=== PATIENT | female | born 1955 | race Caucasian/White ===

== ENCOUNTER 2016-07-07 22:31 | Inpatient (IN) | payer OTHER, MEDICAID ==
--- NOTE | 2016-07-07 22:54 | EDPHY ---
H & P Stated Complaint: muscle rigidity HPI/ROS: HPI The patient presents with muscle rigidity in her lower extremities which has been present for the last several hours. The patient underwent outpatient operation for rectal prolapse today at approximately 11:00 a.m. at the [facility] outpatient surgery center. She reports she had light sedation, was not intubated, believes she had some sort of block performed. She was able to walk after the operation, however she had slow onset of rigidity in both of her lower extremities to the point that she was unable to walk. This is severe and has been constant. This was associated with a sensation of urinary retention. She is on baclofen total of 40 mg a day, however was only able to take 20 mg today and she feels this is causing some spasticity. She does not have any new numbness of her legs. She is brought in by ambulance and was given Valium 10 mg IV with some improvement of her symptoms. She recently restarted a MS medication because of ongoing symptoms of leg numbness and weakness. REVIEW OF SYSTEMS Constitutional: No fever, no chills. Eyes: No discharge. ENT: No sore throat. Cardiovascular: No chest pain, no palpitations. Respiratory: No cough, no shortness of breath. Gastrointestinal: No abdominal pain, no vomiting. Genitourinary: No hematuria. Musculoskeletal: No back pain. Skin: No rashes. Neurological: No headache. PMHx: Multiple sclerosis on Gilenya, restarted 2 wks ago, walks with a cane Soc Hx: Lives with a roommate in [place] PHYSICAL General Appearance: Alert, no distress Eyes: Pupils equal and round no pallor or injection ENT, Mouth: Mucous membranes moist Respiratory: There are no retractions, lungs are clear to auscultation Cardiovascular: Regular rate and rhythm Gastrointestinal: Abdomen is soft and non-tender, no masses, bowel sounds normal Neurological: A&O, increased tone in both of her lower extremities hips and knees extended and feet in plantar flexion no clonus is elicited, 2+ patellar reflexes bilaterally, mildly decreased sensation to light touch in both legs Skin: Warm and dry, no rashes Musculoskeletal: Neck is supple non tender Extremities: symmetrical, no rash Psychiatric: Patient is oriented X 3, there is no agitation Source: Patient, EMS Exam Limitations: No limitations - Personal History Current Tetanus/Diphtheria Vaccine: Yes Current Tetanus Diphtheria and Acellular Pertussis (TDAP): Yes - Medical/Surgical History Hx Asthma: No Hx Chronic Respiratory Disease: No Hx Diabetes: No Hx Cardiac Disease: No Hx Renal Disease: No Hx Cirrhosis: No Hx Alcoholism: No Hx HIV/AIDS: No Hx Splenectomy or Spleen Trauma: No Other PMH: MS, prolapsed rectum - Social History Smoking Status: Current every day smoker Constitutional: Initial Vital Signs Temperature (C) 37.1 C 07/07/16 22:45 Heart Rate 76 07/07/16 22:45 Respiratory Rate 20 07/07/16 22:45 Blood Pressure 119/76 07/07/16 22:45 O2 Sat (%) 95 07/07/16 22:45 O2 Delivery Mode Room Air Allergies/Adverse Reactions: morphine Allergy (Verified 07/07/16 22:43) Home Medications: Medication Instructions Recorded Baclofen 07/07/16 Gilenya 07/07/16 Miralax 17 gm (*) 07/07/16 Oxybutynin 07/07/16 Paroxetine HCl 07/07/16 VITAMIN D 07/07/16 traMADol 07/07/16 Medical Decision Making Differential Diagnosis: This is a 60-year-old female with history of multiple sclerosis who presents brought in by ambulance for lower extremity rigidity bilaterally and urinary retention, after having outpatient surgery to repair a rectal prolapse earlier today. Differential diagnosis includes anesthesia side-effect, multiple sclerosis flare , UTI. In the emergency room, Ward catheter was placed with return of 1200 mL of clear urine. This improved her symptoms significantly, however rigidity persisted. She was given a dose of baclofen as well as an additional dose of Valium. She was monitored for several hours. With medication, her rigidity of her lower extremities improved, however she was still unable to ambulate. Basic labs were checked and were all unremarkable including a UA. I feel that her symptoms could be related to baclofen withdrawal. I have discussed the case with the hospitalist Dr. Bhavesh Navarro and we plan to admit the patient. - Data Points Laboratory Results: Laboratory Results 07/07/16 23:20 07/07/16 23:20 07/07/16 07/07/16 07/07/16 23:20 23:20 23:00 WBC 14.33 10^3/uL H 10^3/uL (3.80-9.50) RBC 3.83 10^6/uL L 10^6/uL (4.18-5.33) Hgb 12.2 g/dL L g/dL (12.6-16.3) Hct 36.0 % L % (38.0-47.0) MCV 94.0 fL fL (81.5-99.8) MCH 31.9 pg pg (27.9-34.1) MCHC 33.9 g/dL g/dL (32.4-36.7) RDW 13.0 % % (11.5-15.2) Plt Count 169 10^3/uL 10^3/uL (150-400) MPV 11.3 fL fL (8.7-11.7) Neut % (Auto) 88.5 % H % (39.3-74.2) Lymph % (Auto) 5.7 % L % (15.0-45.0) Wilkinson % (Auto) 5.3 % % (4.5-13.0) Eos % (Auto) 0.1 % L % (0.6-7.6) Baso % (Auto) 0.1 % L % (0.3-1.7) Nucleat RBC Rel Count 0.0 % % (0.0-0.2) Absolute Neuts (auto) 12.68 10^3/uL H 10^3/uL (1.70-6.50) Absolute Lymphs (auto) 0.81 10^3/uL L 10^3/uL (1.00-3.00) Absolute Monos (auto) 0.76 10^3/uL 10^3/uL (0.30-0.80) Absolute Eos (auto) 0.01 10^3/uL L 10^3/uL (0.03-0.40) Absolute Basos (auto) 0.02 10^3/uL 10^3/uL (0.02-0.10) Absolute Nucleated RBC 0.00 10^3/uL 10^3/uL (0-0.01) Immature Gran % 0.3 % % (0.0-1.1) Immature Gran # 0.05 10^3/uL 10^3/uL (0.00-0.10) Sodium 138 mEq/L mEq/L (134-144) Potassium 4.1 mEq/L mEq/L (3.5-5.2) Chloride 108 mEq/L mEq/L (97-110) Carbon Dioxide 23 mEq/l mEq/l (22-31) Anion Gap 7 mEq/L L mEq/L (8-16) BUN 10 mg/dL mg/dL (7-23) Creatinine 0.7 mg/dL mg/dL (0.6-1.0) Estimated GFR > 60 Glucose 101 mg/dL H mg/dL (70-100) Calcium 8.9 mg/dL mg/dL (8.5-10.4) Total Bilirubin 0.7 mg/dL mg/dL (0.1-1.4) AST 15 IU/L IU/L (14-46) ALT 31 IU/L IU/L (9-52) Alkaline Phosphatase 79 IU/L IU/L (38-126) Creatine Kinase 66 IU/L IU/L (0-156) Total Protein 6.2 g/dL L g/dL (6.3-8.2) Albumin 3.7 g/dL g/dL (3.5-5.0) Urine Color YELLOW Urine Appearance CLEAR Urine pH 7.0 (5.0-7.5) Ur Specific [place] 1.010 (1.002-1.030) Urine Protein NEGATIVE (NEGATIVE) Urine Ketones TRACE H (NEGATIVE) Urine Blood NEGATIVE (NEGATIVE) Urine Nitrate NEGATIVE (NEGATIVE) Urine Bilirubin NEGATIVE (NEGATIVE) Urine Urobilinogen NEGATIVE EU EU (0.2-1.0) Ur Leukocyte Esterase NEGATIVE (NEGATIVE) Urine Glucose NEGATIVE (NEGATIVE) Medications Given: Discontinued Medications Baclofen (Baclofen) 20 mg PO EDNOW ONE Stop: 07/07/16 23:02 Last Admin: 07/07/16 23:30 Dose: 20 mg Diazepam (Valium Injection) 5 mg IVP EDNOW ONE Stop: 07/07/16 23:38 Last Admin: 07/07/16 23:55 Dose: 5 mg Ketorolac Tromethamine (Toradol) 15 mg IVP EDNOW ONE Stop: 07/07/16 23:38 Last Admin: 07/07/16 23:55 Dose: 15 mg Departure - Departure Disposition: [facility] Clinical Impression: Hypertonia with rigidity, Urinary retention, Multiple sclerosis Condition: Fair
[2016-07-07] MEDS ORDERED: BACLOFEN 20 MG TAB PO ONE (23:01)
[2016-07-07 23:30] LABS: % IMMATURE GRANULYOCYTES 0.3 % (0.0-1.1); ABSOLUTE IMMATURE GRANULOCYTES 0.05 10^3/uL (0.00-0.10); ADD DIFF? NO; ADD MORPH? NO; ADD SCAN? NO; ATYPICAL LYMPHOCYTE FLAG 0 (0-99); FRAGMENT RBC FLAG 0 (0-99); HEMOGLOBIN 12.2 g/dL (12.6-16.3); LEFT SHIFT FLG 0 (0-99); LIPEMIA HEMOLYSIS FLAG 90 (0-99); MEAN CELL HEMOGLOBIN 31.9 pg (27.9-34.1); MEAN CELL HEMOGLOBIN CONCENTR. 33.9 g/dL (32.4-36.7); MEAN PLATELET VOLUME 11.3 fL (8.7-11.7); PLATELET CLUMPS FLAG 20 (0-99); PLATELET COUNT 169 10^3/uL (150-400); RED BLOOD CELL COUNT 3.83 10^6/uL (4.18-5.33)
[2016-07-07] MEDS ORDERED: DIAZEPAM 10 MG/2 ML SYR IVP ONE (23:37)
[2016-07-07] MEDS ORDERED: KETOROLAC 30 MG/1 ML SDV IVP ONE (23:37)
[2016-07-07 23:44] LABS: COLOR YELLOW; LEUKOCYTE ESTERASE,URINE NEGATIVE (NEGATIVE); NITRITE,URINE NEGATIVE (NEGATIVE)
[2016-07-08 00:05] LABS: ALANINE AMINOTRANSFERASE 31 IU/L (9-52); ALBUMIN 3.7 g/dL (3.5-5.0); ALKALINE PHOSPHATASE 79 IU/L (38-126); ANION GAP 7 mEq/L (8-16); ASPARTATE AMINOTRANSFERASE 15 IU/L (14-46); BILIRUBIN,TOTAL 0.7 mg/dL (0.1-1.4); CALCIUM 8.9 mg/dL (8.5-10.4); CARBON DIOXIDE 23 mEq/l (22-31); CHLORIDE 108 mEq/L (97-110); CREATININE 0.7 mg/dL (0.6-1.0); GLOMERULAR FILTRATION RATE > 60; GLUCOSE 101 mg/dL (70-100); POTASSIUM 4.1 mEq/L (3.5-5.2); SODIUM 138 mEq/L (134-144); TOTAL PROTEIN 6.2 g/dL (6.3-8.2)
[2016-07-08] MEDS ORDERED: ONDANSETRON 4 MG/2 ML VIAL IVP PRN (01:31)
[2016-07-08] MEDS ORDERED: ACETAMINOPHEN 325 MG TAB PO PRN (01:31)
[2016-07-08] MEDS ORDERED: ONDANSETRON DISINTEGRATING 4 MG TAB PO PRN (01:31)
--- NOTE | 2016-07-08 02:03 | GHP ---
[f rep st] HISTORY AND PHYSICAL DATE OF ADMISSION: 07/08/2016 HISTORY OF PRESENT ILLNESS: The patient is a pleasant 60-year-old female, with a history of multipl e sclerosis, rectal prolapse, who has an outpatient what sounds like rectopexy done at [facility]. Today, she felt well after discharge and went home to [place], but then had progressiv mian more and more difficult time walking, to the point where she sought care in the emergency depart ment. She had rigidity. She had no pain. This is not consistent with a multiple sclerosis flare. She has been told she has relapsing remitting multiple sclerosis, but does not really have any elroy ssion. She also had urinary retention. Notably, she takes 40 mg of baclofen daily and she only took about 10 or 20 today. When I saw her i n the emergency department she had received baclofen and Valium and felt considerably better, much m ore like herself. She did not suspect that she was having a flare at this time. No fever, chills, cough, shortness of breath, nausea, vomiting, diarrhea. REVIEW OF SYSTEMS: Complete 10-point review of systems conducted, negative except as noted in the H PI. PAST MEDICAL HISTORY: Rectal prolapse, multiple sclerosis. She is on Gilenya. Ambulates with a wa lker or a cane. SOCIAL HISTORY: She smokes cigarettes. Minimal alcohol. Lives in [place] with a roommate. FAMILY HISTORY: Notable for hypertension, some cancers. ALLERGIES: Morphine. HOME MEDICATIONS: Baclofen, Gilenya, vitamin D, tramadol, paroxetine, oxybutynin, and MiraLAX. PHYSICAL EXAMINATION: PRESENTING VITAL SIGNS: Temp 37.1, blood pressure 119/76, pulse 76, breathin g 20 times a minute, 95% on room air. GENERAL: No acute distress. HEENT: Sclerae anicteric. Meg pharynx clear. Mucous membranes are moist. NECK: Supple, without lymphadenopathy or JVD. LUNGS: Clear to auscultation bilaterally. HEART: S1, S2. ABDOMEN: Soft, nontender, nondistended. LOWE R EXTREMITIES: Without edema. Calves are nontender. SKIN: Without rash. NEUROLOGIC: Grossly no nfocal. The patient is able to flex her legs when I see her. LABS: White count 14.3, hematocrit 36 platelets are 169,000. Chem-7 is normal. LFTs normal. Tota l protein normal. UA is negative. I have discussed the case with Dr. Layla De La Garza. ASSESSMENT/PLAN: A 60-year-old female with multiple sclerosis here, with rigidity following an outp atient surgery. 1. Multiple sclerosis. I suspect this is more likely an absence of medicines as opposed to a multi ple sclerosis flare. She has not been admitted to this hospital with multiple sclerosis flares in t he past. Her neurologist is somebody in [place], Dr. Burton. To that end, I will give her baclofen 10 t.i.d., and Valium 2.5 q.6 p.r.n. I will hold on treating her for a flare. 2. Recent surgery. She has a stable hematocrit and no rectal pain. We will follow. 3. Urinary retention. This is likely secondary to anticholinergic agents plus possibly multiple sc lerosis effect as she has a Ward in now. I have written to discontinue it at 8 a.m. 4. Difficulty ambulating. I will have PT and OT see her. I suspect she will be able to. [place] a roommate, and no one else to help her, so I think that she will need to be independent on discharge. 5. Prophylaxis. She is moderate to high risk. However, I think she will be in the hospital less t rogers 24 hours. I have written for SCDs alone now. Certainly, is she remains in the hospital longer than 24 hours, then pharmacologic prophylaxis is indicated. 6. Disposition: Observation. /[id number]/MODL
[2016-07-08] MEDS: BACLOFEN 10 MG TAB PO SCH ×4 (08:27→19:56)
[2016-07-08] MEDS ORDERED: OXYBUTYNIN CHLORIDE 10 MG PO SCH (11:15)
[2016-07-08] MEDS: PARoxetine HCL 20 MG TAB PO SCH (12:39)
[2016-07-08] MEDS ORDERED: BACLOFEN 10 MG TAB PO ONE (12:45)
[2016-07-08] MEDS: traMADol 50 MG TAB PO PRN ×2 (12:48→19:55)
--- NOTE | 2016-07-08 14:05 | HOSPPROG ---
Hospitalist Progress Note Assessment/Plan: Michelle Mcghee is a 60 y/o female who has known MS. She presented to the ER with increase difficulty walking. She was admitted earlier by Dr Navarro. I came by to further f/u with her. *MS with associated weakness likely not an exacerbation started on baclofen/had been off of this *inability to walk suspect she will need higher level of care lives in [place] with her boyfriend OT is recommending rehab *leukocytosis recheck labs in a.m. *recent rectopexy done at [facility] yesterday she says for surgery she didn't take her meds for MS *Nicotine dependence nicotine patch *DVT prophylaxis: LMWH *Code status: DNR *Plan: repeat labs in a.m., suspect her weakness has been progressing and will need a higher level of care. Will change her to IP status. Subjective: Michelle is c/o being very weak. Objective: Vital Signs Temp Pulse Resp BP Pulse Ox 37.2 C 78 16 107/64 95 07/08/16 12:22 07/08/16 12:22 07/08/16 12:22 07/08/16 12:22 07/08/16 12:22 07/07/16 07/08/16 07/09/16 05:59 05:59 05:59 Intake Total 20 Output Total 1650 Balance -1630 - Physical Exam Constitutional: chronically ill appearing Eyes: PERRL Ears, Nose, Mouth, Throat: hearing normal Respiratory: no respiratory distress Skin: warm Neurologic: AAOx3 Psychiatric: interacting appropriately ICD10 Worksheet Patient Problems: Problems Problem Status Onset Hypertonia with rigidity Acute Multiple sclerosis Acute Urinary retention Acute
[2016-07-08] MEDS: NICOTINE 21 MG/24 HR PATCH TD SCH (15:20)
[2016-07-08] MEDS ORDERED: diphenhydrAMINE 25 MG CAP PO PRN (19:41)
[2016-07-08] MEDS: DIAZEPAM 5 MG TAB PO PRN (22:10)
[2016-07-09 05:26] LABS: % IMMATURE GRANULYOCYTES 0.4 % (0.0-1.1); ABSOLUTE IMMATURE GRANULOCYTES 0.03 10^3/uL (0.00-0.10); ADD DIFF? NO; ADD MORPH? NO; ADD SCAN? NO; ATYPICAL LYMPHOCYTE FLAG 0 (0-99); FRAGMENT RBC FLAG 0 (0-99); HEMATOCRIT 36.2 % (38.0-47.0); HEMOGLOBIN 12.1 g/dL (12.6-16.3); LEFT SHIFT FLG 0 (0-99); LIPEMIA HEMOLYSIS FLAG 80 (0-99); MEAN CELL HEMOGLOBIN 32.2 pg (27.9-34.1); MEAN CELL HEMOGLOBIN CONCENTR. 33.4 g/dL (32.4-36.7); MEAN CELL VOLUME 96.3 fL (81.5-99.8); MEAN PLATELET VOLUME 11.5 fL (8.7-11.7); PLATELET CLUMPS FLAG 0 (0-99); PLATELET COUNT 161 10^3/uL (150-400); RED BLOOD CELL COUNT 3.76 10^6/uL (4.18-5.33); RED CELL DISTRIBUTION WIDTH 13.3 % (11.5-15.2)
[2016-07-09 05:41] LABS: ANION GAP 6 mEq/L (8-16); CALCIUM 8.8 mg/dL (8.5-10.4); CARBON DIOXIDE 23 mEq/l (22-31); CHLORIDE 111 mEq/L (97-110); CREATININE 0.7 mg/dL (0.6-1.0); GLOMERULAR FILTRATION RATE > 60; GLUCOSE 97 mg/dL (70-100); POTASSIUM 4.3 mEq/L (3.5-5.2); SODIUM 140 mEq/L (134-144)
[2016-07-09] MEDS ORDERED: FINGOLIMOD HCL 0.5 MG PO SCH ×2 (09:00)
[2016-07-09] MEDS: PARoxetine HCL 20 MG TAB PO SCH (09:35)
[2016-07-09] MEDS: OXYBUTYNIN 5 MG EXT REL TAB PO SCH (09:35)
[2016-07-09] MEDS: BACLOFEN 10 MG TAB PO SCH ×4 (09:35→20:45)
[2016-07-09] MEDS: NICOTINE 21 MG/24 HR PATCH TD SCH (09:36)
[2016-07-09] MEDS: ENOXAPARIN 40 MG/0.4 ML SYR SC SCH (09:38)
--- NOTE | 2016-07-09 10:19 | HOSPPROG ---
Hospitalist Progress Note Assessment/Plan: Michelle Mcghee is a 60 y/o female who has known MS. She presented to the ER with increase difficulty walking. *MS with associated weakness likely not an exacerbation started on baclofen/had been off of this *gait instability fell yesterday/patient describes more of weakness an sliding herself to the floor did not sustain any injuries inability to walk/lives in [facility] her boyfriend therapy has recommended SNF *leukocytosis resolved *recent rectopexy done at [facility] on Sunday (07/07) she says for surgery she didn't take her meds for MS *Nicotine dependence nicotine patch *DVT prophylaxis: LMWH *Code status: DNR *Plan: she will need a SNF for rehab/ CM involved. Subjective: Michelle has no complaints. Objective: Vital Signs Temp Pulse Resp BP Pulse Ox 36.8 C 70 18 112/66 94 07/09/16 08:00 07/09/16 08:00 07/09/16 08:00 07/09/16 08:00 07/09/16 08:00 Laboratory Results 07/09/16 04:30 07/09/16 04:45 07/08/16 07/09/16 07/10/16 05:59 05:59 05:59 Intake Total 200 Output Total 451 Balance -251 - Physical Exam Constitutional: no apparent distress, appears nourished, not in pain Eyes: PERRL Ears, Nose, Mouth, Throat: hearing normal Cardiovascular: regular rate and rhythym, No bradycardia Respiratory: no respiratory distress Gastrointestinal: normoactive bowel sounds Skin: warm, normal color Musculoskeletal: generalized weakness Neurologic: AAOx3 Psychiatric: interacting appropriately, not anxious ICD10 Worksheet Patient Problems: Problems Problem Status Onset Hypertonia with rigidity Acute Multiple sclerosis Acute Urinary retention Acute
[2016-07-09] MEDS: traMADol 50 MG TAB PO PRN ×3 (11:58→20:45)
[2016-07-10] MEDS: traMADol 50 MG TAB PO PRN ×3 (03:43→20:08)
[2016-07-10] MEDS: DIAZEPAM 5 MG TAB PO PRN ×2 (03:43→23:27)
[2016-07-10] MEDS: NICOTINE 21 MG/24 HR PATCH TD SCH (09:02)
[2016-07-10] MEDS: ENOXAPARIN 40 MG/0.4 ML SYR SC SCH (09:04)
[2016-07-10] MEDS: BACLOFEN 10 MG TAB PO SCH ×3 (09:05→16:29)
[2016-07-10] MEDS: PARoxetine HCL 20 MG TAB PO SCH (09:05)
[2016-07-10] MEDS: FINGOLIMOD HCL 0.5 MG PO SCH (09:05)
[2016-07-10] MEDS: OXYBUTYNIN 5 MG EXT REL TAB PO SCH (09:05)
--- NOTE | 2016-07-10 12:48 | HOSPPROG ---
Hospitalist Progress Note Assessment/Plan: Michelle Mcghee is a 60 y/o female who has known MS. She presented to the ER with increase difficulty walking. This is my first encounter, chart reviewed. MARC RN and CM. *MS with associated weakness likely not an exacerbation started on baclofen/had been off of this *gait instability fell/patient describes more of weakness an sliding herself to the floor did not sustain any injuries inability to walk/lives in [place] w her boyfriend therapy has recommended SNF *leukocytosis resolved *recent rectopexy done at [facility] on Sunday (07/07) she says for surgery she didn't take her meds for MS *Nicotine dependence nicotine patch *DVT prophylaxis: LMWH *Code status: DNR *Plan: she will need a SNF for rehab/ CM involved. Will DC to rehab in am if stable Subjective: Feeling better. Feeling stronger. No pain. Objective: Vital Signs Temp Pulse Resp BP Pulse Ox 36.6 C 67 16 110/74 93 07/10/16 07:39 07/10/16 07:39 07/10/16 07:39 07/10/16 07:39 07/10/16 09:40 Laboratory Results 07/09/16 04:30 07/09/16 04:45 07/09/16 07/10/16 07/11/16 05:59 05:59 05:59 Intake Total 200 800 Output Total 451 2600 1150 Balance -251 -1800 -1150 - Physical Exam Constitutional: no apparent distress, appears nourished, not in pain Eyes: PERRL, anicteric sclera, EOMI Ears, Nose, Mouth, Throat: moist mucous membranes, hearing normal, ears appear normal Cardiovascular: No JVD, No tachycardia, No edema Respiratory: no respiratory distress, no rales or rhonchi, reduced air movement Gastrointestinal: No tenderness, No ascites, No guarding Skin: warm, normal color, No erythema Musculoskeletal: no joint effusions, abnormal gait, generalized weakness Neurologic: AAOx3 Psychiatric: interacting appropriately, not anxious, not encephalopathic ICD10 Worksheet Patient Problems: Problems Problem Status Onset Hypertonia with rigidity Acute Urinary retention Acute Multiple sclerosis Acute
[2016-07-10] MEDS ORDERED: ERGOCALCIFEROL 50,000 I.UNIT CAP PO SCH ×2 (13:30→14:00)
[2016-07-10] MEDS ORDERED: BACLOFEN 10 MG TAB PO SCH (21:00)
[2016-07-11 08:18] VITALS: BP 110/61; PULSE 64; RESP 14; TEMP 98.1; O2SAT 97
[2016-07-11] MEDS: OXYBUTYNIN 5 MG EXT REL TAB PO SCH (08:45)
[2016-07-11] MEDS: NICOTINE 21 MG/24 HR PATCH TD SCH (08:45)
[2016-07-11] MEDS: ENOXAPARIN 40 MG/0.4 ML SYR SC SCH (08:45)
[2016-07-11] MEDS: PARoxetine HCL 20 MG TAB PO SCH (08:45)
[2016-07-11] MEDS: BACLOFEN 10 MG TAB PO SCH ×3 (08:45→14:53)
[2016-07-11] MEDS: FINGOLIMOD HCL 0.5 MG PO SCH (08:46)
--- NOTE | 2016-07-11 09:10 | PDIAF ---
- Diagnosis Diagnosis: weakness Code Status: Do Not Resuscitate - Medication Management Discharge Medications: Medications to Continue on Transfer Ergocalciferol [Vitamin D2 (*)] 50,000 unit PO Q7D 07/08/16 [Last Taken 06/30/16 ] Fingolimod HCl [Gilenya] 0.5 mg PO DAILY 07/08/16 [Last Taken 07/06/16] Oxybutynin Chloride [OXYBUTYNIN CHLORIDE ER] 10 mg PO DAILY 07/08/16 [Last Taken Unknown] PARoxetine HCL [Paroxetine HCl] 20 mg PO DAILY 07/08/16 [Last Taken 07/07/16] TRAMADOL HCL 50 - 100 mg PO Q4H PRN 07/08/16 [Last Taken Unknown] Acetaminophen [Tylenol 325mg (*)] 650 mg PO Q4HRS PRN #0 tab 07/11/16 [Last Taken Unknown] Baclofen [Baclofen 10 mg (*)] 10 mg PO 0900,1200,1600 tab 07/11/16 [Last Taken Unknown] Baclofen [Baclofen 10 mg (*)] 20 mg PO HS tab 07/11/16 [Last Taken Unknown] Diazepam [Valium 5 MG (*)] 5 mg PO Q6HRS PRN #0 tab 07/11/16 [Last Taken Unknown ] Nicotine [Nicoderm Cq 21 mg (*)] 21 mg TD DAILY patch 07/11/16 [Last Taken Unknown] diphenhydrAMINE [Benadryl 25 MG (*)] 25 mg PO HS PRN #0 cap 07/11/16 [Last Taken Unknown] Discharge Medications: Refer to the Discharge Home Medication list for PRN reason. PICC Care - Routine: N/A - Orders Services needed: Registered Nurse, Physical Therapy, Occupational Therapy Diet Recommendation: no restrictions on diet - Follow Up Care Current Providers and Referrals: Kimmie Fuentes MD [Primary Care Provider] -
--- NOTE | 2016-07-11 12:00 | GDS ---
[f rep st] DISCHARGE SUMMARY DISCHARGE DIAGNOSES: 1. Multiple sclerosis with associated weakness. 2. Gait instability. 3. Leukocytosis. 4. Recent rectopexy. 5. Nicotine dependency. PHYSICAL EXAM: GENERAL: The patient is alert. VITAL SIGNS: Afebrile at 36.7, pulse is 64, respir atory rate is 14, blood pressure is 110/61. she is saturating 97% on room air. I have seen and evaluated the patient on the date of discharge. HOSPITAL COURSE: This patient is a 60-year-old female who has a history of MS, presented [facility] with complaints of difficulty walking and increased weakness. She was evaluated and emily gnosed with: 1. MS with associated weakness. This is likely contributed in the setting of the patient not takin g her medications recently due to surgical intervention. Her medications have been re-initiated. S he has been evaluated by Physical Therapy, as well as Occupational Therapy. It is recommended that she have [facility] in the outpatient setting. 2. Gait instability. Again, this is multifactorial. The patient has had recent falls. She is doi ng significantly better, however, still requiring inpatient rehabilitation for her generalized weakn ess and gait instability. 3. Leukocytosis. This has resolved. 4. Recent rectopexy. This is stable. The patient will follow with her surgeon in the outpatient s etting at [facility]. 5. Nicotine dependence. Tobacco cessation education has been provided as well as a nicotine patch. DISPOSITION: The patient will be discharged to [facility] for further rehabilitation and strengthen ing. There are no pending studies. DISCHARGE MEDICATIONS: Please refer to EMR form. I have not adjusted the patient's previously pres cribed home medications to the best of my knowledge. She wishes to refrain from all narcotic use, w angel has been respected during this hospitalization and should be respected in the future. FOLLOWUP: Will be with her primary care physician, Dr. Fuentes, as well as her surgeon at [facility]. I spent greater than 35 minute in the care, coordination, and management of this patient's dispositi on. /[id number]/MODL
[2016-07-14] MEDS ORDERED: ERGOCALCIFEROL 50,000 I.UNIT CAP PO SCH (13:30)
== END 2016-07-11 15:21 | DRG 60 ==
LOC: EDUNIT# → F3N 07-08 01:39 → OBSVTOIN 07-08 15:12
PROVIDERS: ADMIT Internal Medicine; ATTEND Internal Medicine
DX: G35 Multiple sclerosis (principal); R26.9 Unspecified abnormalities of gait and mobility; F17.210 Nicotine dependence, cigarettes, uncomplicated; R33.9 Retention of urine, unspecified; Z66 Do not resuscitate
CPT/HCPCS: 96374; 97116-GP; 97161-GP; 97166-GO; 97530-GO; 97530-GP; 97535-GO; J1650; J1885

== ENCOUNTER 2017-03-01 13:58 | Observation (INO) | payer MEDICAID, OTHER ==
--- NOTE | 2017-03-01 14:01 | EDPHY ---
H & P Time Seen by Provider: 03/01/17 14:01 - Medical/Surgical History Hx Asthma: No Hx Chronic Respiratory Disease: No Hx Diabetes: No Hx Cardiac Disease: No Hx Renal Disease: No Hx Cirrhosis: No Hx Alcoholism: No Hx HIV/AIDS: No Hx Splenectomy or Spleen Trauma: No Other PMH: MS, prolapsed rectum - Social History Smoking Status: Current every day smoker Constitutional: Initial Vital Signs Temperature (C) 36.9 C 03/01/17 14:25 Heart Rate 85 03/01/17 14:25 Respiratory Rate 16 03/01/17 14:25 Blood Pressure 113/80 03/01/17 14:25 O2 Sat (%) 93 03/01/17 14:25 O2 Delivery Mode Nasal Cannula O2 (L/minute) 2 Allergies/Adverse Reactions: morphine Allergy (Verified 07/07/16 22:43) Home Medications: Medication Instructions Recorded Fingolimod HCl [Gilenya] 0.5 mg PO DAILY 07/08/16 Oxybutynin Chloride [OXYBUTYNIN 10 mg PO DAILY 07/08/16 CHLORIDE ER] Acetaminophen [Tylenol 325mg (*)] 650 mg PO Q4HRS PRN #0 tab 07/11/16 Baclofen [Baclofen 10 mg (*)] 10 mg PO 0900,1200,1600 tab 07/11/16 Baclofen [Baclofen 10 mg (*)] 20 mg PO HS tab 07/11/16 Diazepam [Valium 5 MG (*)] 5 mg PO Q6HRS PRN #0 tab 07/11/16 Nicotine [Nicoderm Cq 21 mg (*)] 21 mg TD DAILY patch 07/11/16 Cholecalciferol Vit D3 [Vitamin D3 1,000 units PO DAILY 03/01/17 (*)] Ibuprofen [Motrin (*)] 600 mg PO DAILY PRN 03/01/17 PARoxetine HCL [Paxil 30mg (*)] 30 mg PO DAILY 03/01/17 Medical Decision Making - Diagnostics Imaging Results: Imaging Impressions Head CT 03/01/17 14:12 Impression: 1. No hemorrhage, mass effect, or definite acute peripheral infarct. 2. Moderate relatively stable nonspecific hypodensities in the white matter of bilateral cerebral hemispheres. This appears to be related to multiple white matter plaques in this patient with history of multiple sclerosis. If symptoms worsen, additional imaging may be necessary. Findings discussed with Emmett Montes MD at 14:47 hour, 03/01/2017. Imaging: Discussed imaging studies w/ call centre supervisor Radiologist ED Course/Re-evaluation: CHIEF COMPLAINT: Head injury HISTORY OF PRESENT ILLNESS: This patient is a non-anticoagulated 61-year-old female with history of multiple sclerosis complaining of headache, nausea, and vomiting secondary to a fall two days ago. She fell and struck her head while trying to fix her shower curtain two nights ago. She denies loss of consciousness. Yesterday, she had a routine followup exam yesterday through her MS clinic and felt well at that time. Her MS exacerbations usually present as numbness, tingling, imbalance, and cognitive issues. She does not have similar symptoms and denies any recent medication changes. Today, she has a headache, dizziness, and nausea. She has vomited and has been unable to keep her medications down. She denies diarrhea or abdominal pain. No fever, neck pain, visual changes, confusion, or other associated symptoms. She denies any other trauma. REVIEW OF SYSTEMS: A 10 point review of systems was performed and is negative with the exception of the elements mentioned in the history of present illness. PHYSICAL EXAM: HR, BP, O2 Sat, RR. Temp noted General Appearance: Alert, well hydrated, appropriate, and non-toxic appearing. Head: Atraumatic without scalp tenderness or obvious injury Eyes: Pupils equal, round, reactive to light and accommodation, EOMI, no trauma , no injection. Ears: Clear bilaterally, no perforation, normal landmarks Nose: Atraumatic, no rhinorrhea, clear. Throat: There is no erythema or exudates, no lesions, normal tonsils, mucus membranes moist. Neck: Supple, nontender, no lymphadenopathy. Respiratory: No retractions, no distress, no wheezes, and no accessory muscle use. Lungs are clear to auscultation bilaterally. Cardiovascular: Regular rate and rhythm, no murmurs, rubs, or gallops. Bilateral carotid, radial, dorsalis pedis, and posterior tibial pulses intact. Good capillary refill all extremities. Gastrointestinal: Abdomen is soft, nontender, non-distended, no masses, no rebound, no guarding, no peritoneal signs. Musculoskeletal: Normal active ROM of all extremities, atraumatic. Neurological: Alert, appropriate, and interactive. The patient has normal DTRs and non-focal cranial nerves, motor, sensory, and cerebellar exam. Skin: No rashes, good turgor, no nodules on palpation. Past medical history: Multiple Sclerosis. Prolapsed rectum. Past surgical history: Noncontributory. Family history: Noncontributory. Social history: Current tobacco use. DIFFERENTIAL DIAGNOSIS: The differential diagnosis for the patient's trauma included but was not limited to intracranial injury, long bone and pelvic bone fractures, spinal injury, intra-abdominal injury, and intra-thoracic injury. MEDICAL DECISION MAKING: This 61 [id number] with history of multiple sclerosis presents with headache, nausea, and vomiting secondary to a fall two days ago. Exam unremarkable. She is neurologically intact. Plan for CT head w/o contrast to rule out acute processes. She requests 10mg IV Valium prior to her imaging study. 14:[address] Lawler, radiologist. CT head negative for acute processes. 15:55 Reassessed patient. I reassured her there is no evidence of acute intracranial injury. Plan to discharge home in good condition. Follow up and return precautions discussed. Referral to concussion specialist given. 16:30 The patient states she is not feeling comfortable with discharge home, and is worried she will not be able to ambulate. She feels she would not be safe at her home tonight. 17:23 Spoke with hospitalist service. Dr. Navarro accepts admission for MS exacerbation, inability to ambulate. - Data Points Laboratory Results: Laboratory Results 03/01/17 16:00 03/01/17 16:00 03/01/17 03/01/17 16:00 16:00 WBC 7.23 10^3/uL 10^3/uL (3.80-9.50) RBC 4.78 10^6/uL 10^6/uL (4.18-5.33) Hgb 15.6 g/dL g/dL (12.6-16.3) Hct 45.4 % % (38.0-47.0) MCV 95.0 fL fL (81.5-99.8) MCH 32.6 pg pg (27.9-34.1) MCHC 34.4 g/dL g/dL (32.4-36.7) RDW 13.4 % % (11.5-15.2) Plt Count 190 10^3/uL 10^3/uL (150-400) MPV 12.0 fL H fL (8.7-11.7) Neut % (Auto) 93.0 % H % (39.3-74.2) Lymph % (Auto) 1.7 % L % (15.0-45.0) [place] % (Auto) 4.6 % % (4.5-13.0) Eos % (Auto) 0.3 % L % (0.6-7.6) Baso % (Auto) 0.3 % % (0.3-1.7) Nucleat RBC Rel Count 0.0 % % (0.0-0.2) Absolute Neuts (auto) 6.73 10^3/uL H 10^3/uL (1.70-6.50) Absolute Lymphs (auto) 0.12 10^3/uL L 10^3/uL (1.00-3.00) Absolute Monos (auto) 0.33 10^3/uL 10^3/uL (0.30-0.80) Absolute Eos (auto) 0.02 10^3/uL L 10^3/uL (0.03-0.40) Absolute Basos (auto) 0.02 10^3/uL 10^3/uL (0.02-0.10) Absolute Nucleated RBC 0.00 10^3/uL 10^3/uL (0-0.01) Immature Gran % 0.1 % % (0.0-1.1) Immature Gran # 0.01 10^3/uL 10^3/uL (0.00-0.10) Sodium 141 mEq/L mEq/L (134-144) Potassium 4.6 mEq/L mEq/L (3.5-5.2) Chloride 104 mEq/L mEq/L (97-110) Carbon Dioxide 24 mEq/l D mEq/l (22-31) Anion Gap 13 mEq/L mEq/L (8-16) BUN 14 mg/dL mg/dL (7-23) Creatinine 0.7 mg/dL mg/dL (0.6-1.0) Estimated GFR > 60 Glucose 93 mg/dL mg/dL (70-100) Calcium 9.2 mg/dL mg/dL (8.5-10.4) Medications Given: Discontinued Medications Baclofen (Baclofen) 10 mg PO EDNOW ONE Stop: 03/01/17 16:16 Last Admin: 03/01/17 16:37 Dose: Not Given Diazepam (Valium Injection) 10 mg IVP EDNOW ONE Stop: 03/01/17 14:12 Last Admin: 03/01/17 14:15 Dose: 10 mg Diazepam (Valium 5 Mg Prepack#4) 1 btl TAKEHOME EDNOW ONE Stop: 03/01/17 16:31 Last Admin: 03/01/17 17:29 Dose: Not Given Ibuprofen (Motrin) 600 mg PO EDNOW ONE Stop: 03/01/17 16:07 Last Admin: 03/01/17 16:20 Dose: 600 mg Ondansetron HCl (Zofran Odt) 4 mg PO EDNOW ONE Stop: 03/01/17 16:09 Last Admin: 03/01/17 16:20 Dose: 4 mg Departure - Departure Disposition: [facility] Clinical Impression: Multiple sclerosis Concussion Qualifiers: Encounter type: initial encounter Loss of consciousness presence/duration: without LOC Qualified Code(s): S06.0X0A - Concussion without loss of consciousness, initial encounter Condition: Fair Report Scribed for: Emmett Montes Report Scribed by: Marga Nguyen Date of Report: 03/01/17 Time of Report: 14:02
[2017-03-01] MEDS ORDERED: DIAZEPAM 10 MG/2 ML SYR IVP ONE (14:11)
[2017-03-01] MEDS ORDERED: IBUPROFEN 600 MG TAB PO ONE ×2 (16:04→16:06)
[2017-03-01] MEDS ORDERED: BACLOFEN 20 MG TAB PO ONE (16:06)
[2017-03-01] MEDS ORDERED: ONDANSETRON DISINTEGRATING 4 MG TAB PO ONE (16:08)
[2017-03-01] MEDS ORDERED: ONDANSETRON DISINTEGRATING 4 MG TAB ONE (16:10)
[2017-03-01] MEDS ORDERED: BACLOFEN 10 MG TAB PO ONE (16:15)
[2017-03-01] MEDS ORDERED: DIAZEPAM 5 MG PREPACK#4 BTL TAKEHOME ONE ×2 (16:28→16:30)
[2017-03-01 17:29] LABS: % IMMATURE GRANULYOCYTES 0.1 % (0.0-1.1); ABSOLUTE IMMATURE GRANULOCYTES 0.01 10^3/uL (0.00-0.10); ADD DIFF? NO; ADD MORPH? NO; ADD SCAN? NO; ATYPICAL LYMPHOCYTE FLAG 0 (0-99); FRAGMENT RBC FLAG 0 (0-99); HEMATOCRIT 45.4 % (38.0-47.0); HEMOGLOBIN 15.6 g/dL (12.6-16.3); LEFT SHIFT FLG 10 (0-99); LIPEMIA HEMOLYSIS FLAG 90 (0-99); MEAN CELL HEMOGLOBIN 32.6 pg (27.9-34.1); MEAN CELL HEMOGLOBIN CONCENTR. 34.4 g/dL (32.4-36.7); PLATELET CLUMPS FLAG 0 (0-99); PLATELET COUNT 190 10^3/uL (150-400); RED BLOOD CELL COUNT 4.78 10^6/uL (4.18-5.33); RED CELL DISTRIBUTION WIDTH 13.4 % (11.5-15.2)
[2017-03-01 17:32] LABS: ANION GAP 13 mEq/L (8-16); CALCIUM 9.2 mg/dL (8.5-10.4); CARBON DIOXIDE 24 mEq/l (22-31); CHLORIDE 104 mEq/L (97-110); CREATININE 0.7 mg/dL (0.6-1.0); GLOMERULAR FILTRATION RATE > 60; GLUCOSE 93 mg/dL (70-100); POTASSIUM 4.6 mEq/L (3.5-5.2); SODIUM 141 mEq/L (134-144)
[2017-03-01] MEDS ORDERED: ONDANSETRON 4 MG/2 ML VIAL IVP PRN (19:38)
[2017-03-01] MEDS ORDERED: ONDANSETRON DISINTEGRATING 4 MG TAB PO PRN (19:38)
[2017-03-01] MEDS ORDERED: DIAZEPAM 5 MG TAB PO PRN (19:40)
[2017-03-01] MEDS ORDERED: PROMETHAZINE HCL 25 MG/ML INJ IVP PRN (19:43)
[2017-03-01] MEDS ORDERED: D5W 1/2 NS 1,000 ML IV SCH (19:45)
--- NOTE | 2017-03-01 20:16 | GHP ---
[f rep st] HISTORY AND PHYSICAL DATE OF ADMISSION: 03/01/2017 HISTORY OF PRESENT ILLNESS: This is a pleasant 61-year-old female, with a history of multiple sclero sis with a mechanical fall a couple of days ago. 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 She did strike her head. She did not lose consciousness. She has had a head ache since then, as well as some nausea and vomiting. She had a friend visit her today and felt that she really could not take care of herself. She was having a difficult time walking. At best with h er multiple sclerosis, she is able to walk with a cane. Much of the time, she uses a walker. She mata s not had fever, chills. No nausea, vomiting. No diarrhea. She has been eating okay. It sounds like she gets a lot of care in a [facility] where she has physician appointments and PT and OT, and her functional status is somewhat improved with that. She was last admitted here with an MS flare following a rectopexy surgery performed at another institution. REVIEW OF SYSTEMS: Complete 10-point review of systems conducted and negative except as noted in the HPI. PAST MEDICAL HISTORY: 1. Multiple sclerosis. 2. Rectopexy for rectal prolapse. SOCIAL HISTORY: She vapes nicotine products. Minimal alcohol. Lives in [place] with a roommate. FAMILY HISTORY: Notable for hypertension and some cancers ALLERGIES: Morphine. HOME MEDICATIONS: Baclofen, Gilenya, vitamin D, tramadol, paroxetine, oxybutynin, MiraLAX, ibuprofen , Tylenol. PHYSICAL EXAMINATION: VITAL SIGNS: Temp 37.2, blood pressure 101/60, pulse 80, breathing 16 times a minute, 91% on room air. GENERAL: No acute distress. HEENT: Sclerae anicteric. Oropharynx clear . Mucous membranes moist. NECK: Supple, without lymphadenopathy or JVD. LUNGS: Clear to ausculta tion bilaterally. HEART: S1, S2. ABDOMEN: Soft, nontender, nondistended. LOWER EXTREMITIES: No edema. Calves are nontender. SKIN: Without rash. NEUROLOGIC: Nonfocal. LABS: White count 7.2, hematocrit 45, platelets are 190,000. Sodium 141, potassium 4.6, chloride 10 4, bicarb 24, BUN 14, creatinine 0.7, glucose 93. Noncontrast head CT images reviewed and interprete d by me, show no acute process and stable nonspecific hypodensities in the white matter, consistent w ith multiple sclerosis. I have discussed the case Dr. Emmett Montes. ASSESSMENT AND PLAN: A 61-year-old female, with concussion and multiple sclerosis. 1. Concussion. Will manage the symptoms with Zofran, Phenergan, scheduled Tylenol and ibuprofen for her headache. She has no acute features of her head CT and a nonfocal neurologic exam. 2. Multiple sclerosis. It is not clear that this is a flare. We will continue her home medication. 3. Nicotine use. Will provide her with a nicotine patch. 4. Disposition. Observation status. PT, OT evaluations. 5. Code DNR. /[id number]/MODL
[2017-03-01] MEDS ORDERED: BACLOFEN 10 MG TAB PO SCH (21:00)
[2017-03-01] MEDS: ACETAMINOPHEN 500 MG TAB PO SCH (21:30)
[2017-03-01] MEDS: IBUPROFEN 200 MG TAB PO SCH (21:31)
[2017-03-01] MEDS: NICOTINE 21 MG/24 HR PATCH TD SCH (21:36)
[2017-03-01 22:29] LABS: COLOR YELLOW; LEUKOCYTE ESTERASE,URINE NEGATIVE (NEGATIVE); NITRITE,URINE NEGATIVE (NEGATIVE)
[2017-03-01 22:31] LABS: RBC,URINE NONE SEEN /hpf (0-3)
[2017-03-01 23:31] VITALS: RESP 16
[2017-03-02] MEDS: IBUPROFEN 200 MG TAB PO SCH ×4 (02:28→14:59)
[2017-03-02] MEDS: ACETAMINOPHEN 500 MG TAB PO SCH ×2 (05:56→14:58)
[2017-03-02] MEDS ORDERED: OXYBUTYNIN 5 MG EXT REL TAB PO SCH (09:00)
[2017-03-02] MEDS ORDERED: CHOLECALCIFEROL VIT D3 1,000 UNITS TAB PO SCH (09:00)
[2017-03-02] MEDS ORDERED: OXYBUTYNIN CHLORIDE 10 MG PO SCH (09:00)
[2017-03-02] MEDS ORDERED: Fingolimod Hcl [Gilenya] 0.5 MG PO SCH (09:00)
[2017-03-02] MEDS: BACLOFEN 10 MG TAB PO SCH ×3 (10:17→16:37)
[2017-03-02] MEDS: NICOTINE 21 MG/24 HR PATCH TD SCH (10:22)
--- NOTE | 2017-03-02 10:58 | HOSPPROG ---
Hospitalist Progress Note Assessment/Plan: Patient is a 61-year-old female with a history of MS. She had a mechanical fall couple days ago. 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 She did not lose consciousness. Today is my 1st encounter with the patient. Chart reviewed. * concussion -supportive measures -CT scan of her head shows no acute process -has a headache (but could be from caffeine withdrawal) -no further emesis * MS -not likely a flare *nicotine dependence *urinary retention -400 + of urine -may need a catheter *depression -further f/u with her PCP (reviewed this w her doctor) *Hypotension -patient says her baseline systolic is 100, now is 99 *Plan: will check on her after lunch. Will aim for dc to [facility]. Reviewed her care with Dr Claudia Lackey who knows Michelle well. Subjective: Michelle is c/o headache. Objective: Vital Signs Temp Pulse Resp BP Pulse Ox 37.0 C 78 16 99/63 L 98 03/02/17 08:00 03/02/17 08:00 03/02/17 08:00 03/02/17 10:25 03/02/17 08:00 03/01/17 03/02/17 03/03/17 05:59 05:59 05:59 Intake Total 1100 Output Total 550 Balance 550 - Physical Exam Constitutional: uncomfortable Eyes: PERRL Ears, Nose, Mouth, Throat: hearing normal Cardiovascular: regular rate and rhythym Respiratory: no respiratory distress Skin: warm Neurologic: AAOx3 Psychiatric: interacting appropriately, not anxious ICD10 Worksheet Patient Problems: Problems Problem Status Onset Concussion Acute Multiple sclerosis Acute Hypertonia with rigidity Acute Urinary retention Acute
--- NOTE | 2017-03-02 11:49 | ASMTCMCOM ---
CM Note CM Note Notes: Received call from Tabatha SMITH with [facility], pt is with them and they have arranged for her to go to [facility] when she is medically stable. CM contacted Diony at and pt will likely dc after noon. Date Signed: 03/02/2017 11:49 AM Electronically Signed By:Crissy Robledo RN
[2017-03-02] MEDS ORDERED: D5W NS 1,000 ML IV SCH (13:15)
--- NOTE | 2017-03-02 14:09 | PDIAF ---
- Diagnosis Diagnosis: concussion, urinary retention, hypotension Code Status: Do Not Resuscitate - Medication Management Discharge Medications: Medications to Continue on Transfer Fingolimod HCl [Gilenya] 0.5 mg PO DAILY 07/08/16 [Last Taken 03/01/17] Oxybutynin Chloride [OXYBUTYNIN CHLORIDE ER] 10 mg PO DAILY 07/08/16 [Last Taken 03/01/17] Acetaminophen [Tylenol 325mg (*)] 650 mg PO Q4HRS PRN #0 tab 07/11/16 [Last Taken Unknown] Baclofen [Baclofen 10 mg (*)] 10 mg PO 0900,1200,1600 tab 07/11/16 [Last Taken 03/01/17 09:00] Baclofen [Baclofen 10 mg (*)] 20 mg PO HS tab 07/11/16 [Last Taken 02/28/17] Diazepam [Valium 5 MG (*)] 5 mg PO Q6HRS PRN #0 tab 07/11/16 [Last Taken Unknown ] Nicotine [Nicoderm Cq 21 mg (*)] 21 mg TD DAILY patch 07/11/16 [Last Taken Unknown] Cholecalciferol Vit D3 [Vitamin D3 (*)] 1,000 units PO DAILY 03/01/17 [Last Taken 03/01/17] Ibuprofen [Motrin (*)] 600 mg PO DAILY PRN 03/01/17 [Last Taken Unknown] PARoxetine HCL [Paxil 30mg (*)] 30 mg PO DAILY 03/01/17 [Last Taken 03/01/17] Ondansetron Odt [Zofran Odt 4 mg (*)] 4 mg PO Q4HRS PRN tab 03/02/17 [Last Taken Unknown] Discharge Medications: Refer to the Discharge Home Medication list for PRN reason. - Orders Services needed: Physical Therapy, Occupational Therapy, Speech Language Pathologist Diet Recommendation: no restrictions on diet Diet Texture: Regular Texture Diet Additional: Please check patient postvoid residual. If greater than 400, will need to be straight cath. Also recommendation is further evaluation in regards to some depression. Please keep her in a low stimulus environment due to concussion. - Follow Up Care Current Providers and Referrals: Rachael Cervantes MD [Medical Doctor] - As per Instructions Shayan Yanez MD [Medical Doctor] - As per Instructions
--- NOTE | 2017-03-02 14:35 | GDS ---
[f rep st] DISCHARGE SUMMARY DISCHARGE DIAGNOSES: 1. Concussion with associated nausea and vomiting. 2. Multiple sclerosis. 3. Urinary retention. 4. Depression. 5. Hypotension. HISTORY OF PRESENT ILLNESS: Briefly, the patient is a 61-year-old female with a history of MS. She had a mechanical fall a couple days ago. 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 She did not lose consciousness. She a CT scan of her head in the emergency room , which showed no acute bleeding. HOSPITAL COURSE: 1. Concussion: She was admitted initially because she was having such severe nausea and vomiting. This has since resolved. She is eating and drinking well. She still continues to have a headache. 2. Multiple sclerosis: This is not likely a flare. Further follow up with her neurologist in the [facility]. 3. Nicotine dependence: Nicotine Patch. Cessation has been recommended. 4. Urinary retention: She had 400+ of urine after she voided. Recommendation is that she may need a catheter. The patient would like to hold off at this time. 5. Depression: Further follow up with her PCP. I reviewed this with Claudia Goyal MD, her primary care provider. 6. Hypotension: She is close to her baseline. DISCHARGE CONDITION: Stable. Blood pressure is 98/64, heart rate is 77, respiratory rate is 16, O2 sat on room air 96%, temperature 37 degrees Celsius. MEDICATIONS AT DISCHARGE: Please see the EMR. DISCHARGE INSTRUCTIONS: 1. Further follow up with Claudia Goyal MD. 2. I reviewed with her that Valium can also drop her blood pressure, but helps with her spasms secondary to her MS. 3. Low stimulus environment for treatment of her concussion. /[id number]/MODL MTDD
[2017-03-02 15:45] VITALS: BP 114/73; PULSE 73; TEMP 98.5; O2SAT 97
--- NOTE | 2017-03-02 17:17 | ASMTCMCOM ---
CM Note CM Note Notes: Pasrr done by LUIS valverde, faxed to Jojo at [facility]. Notified Diony at , Dr. Lackey and Tabatha at [facility] also notified. Date Signed: 03/02/2017 05:17 PM Electronically Signed By:Crissy Robledo RN
--- NOTE | 2017-03-03 15:05 | ASDISCHSUM ---
Discharge Information Plan Status:SNF Medically Cleared to Leave: Discharge Date:03/02/2017 05:05 PM D/C [facility] D/C Disposition:[facility] Projected Discharge Date:03/02/2017 03:00 PM Transportation at D/C:Wheelchair Van Discharge Delay Reason: Follow-Up Date:03/02/2017 03:00 PM Discharge Slot: Final Diagnosis: Placement Information Referral Type:*Intermediate/SNF Referral ID:[id number] Provider Name:[facility] Address 1:[address] Address 2: City:[place] Selection Factors: State:[place] Patient Contact Information Contact Name:GALDYS Relationship:Sister Address: Work Phone: City: [facility] Phone: [facility]/Zip Code: Email: Financial Information Financial Class:HMO and PPO Plans Primary Plan Desc:[facility] Primary Plan Number:[id number] Secondary Plan Desc: Secondary Plan Number: Assessment Information [facility] CM Progress Note CM Note CM Note Notes: Received call from Tabatha SMITH with [facility], pt is with them and they have arranged for her to go to [facility] when she is medically stable. ALEX contacted Diony at and pt will likely dc after noon. Date Signed: 03/02/2017 11:49 AM Electronically Signed By:Crissy Robledo RN [facility] CM Progress Note CM Note CM Note Notes: Pasrr done by LUIS triggered, faxed to Jojo at [facility]. Notified Diony at , Dr. Lackey and Tabatha at [facility] also notified. Date Signed: 03/02/2017 05:17 PM Electronically Signed By:Crissy Robledo RN Case Management Discharge Plan Note Case Management Discharge Discharge Order Complete? Answers: Yes Patient to Obtain Answers: Other Notes: [facility] Transportation Arranged Answers: Other Notes: [facility] will Pick (Date 03/02/2017 05:00 PM & Time) Faxed Final Orders Answers: Yes Discharge Comments Notes: D/w MEASUREMENT TECHNICIAN, final orders faxed. Diony at notified, level II pasrr faxed. RN to call report. Date Signed: 03/02/2017 05:33 PM Electronically Signed By:Crissy Robledo RN Intervention Information
== END 2017-03-02 17:05 ==
LOC: EDUNIT# → F3E 17:59
PROVIDERS: ADMIT Internal Medicine; ATTEND Hospitalist
DX: S06.0X0A Concussion without loss of consciousness, initial encounter (principal); G35 Multiple sclerosis; R33.9 Retention of urine, unspecified; I95.9 Hypotension, unspecified; F32.9 Major depressive disorder, single episode, unspecified; W19.XXXA Unspecified fall, initial encounter; Y93.E9 Activity, other interior property and clothing maintenance; Y92.012 Bathroom of single-family (private) house as the place of occurrence of the external cause; Y99.8 Other external cause status; F17.200 Nicotine dependence, unspecified, uncomplicated; K62.3 Rectal prolapse; R40.2411 Glasgow coma scale score 13-15, in the field [EMT or ambulance]; Z66 Do not resuscitate
CPT/HCPCS: 70450; 97162; 97166; G0378

== ENCOUNTER → 2017-06-27 | Outpatient (CLI) | payer OTHER | LOC: FIMAGING 11:26 | PROVIDERS: ATTEND Internal Medicine Geriatric Medicine | DX: M79.672 Pain in left foot (principal) ==

== ENCOUNTER → 2017-11-07 | Outpatient (CLI) | payer OTHER, MEDICAID ==
[~2017-11-07] MED LIST: GADOBUTROL 10 ML VIAL IVP ONE
== END ==
LOC: FIMAGING 14:35
PROVIDERS: ATTEND Nurse Practitioner Family
DX: G35 Multiple sclerosis (principal)
CPT/HCPCS: 70553; A9585